=== PATIENT | female | born 1965 | race Asian ===

== ENCOUNTER 2024-05-13 11:22 | Outpatient (CLI) | payer BC ==
[2024-05-13 12:39] LABS: Hematocrit 40.1 % (34.9-44.5); Hemoglobin 13.5 g/dL (12.0-15.5); Mean Corpuscular HGB CONC 33.7 g/dL (32.0-36.0); Mean Corpuscular Hemoglobin 32.1 pg (27.0-33.0); Mean Corpuscular Volume 95.5 fL (81.6-98.3); Mean Platelet Volume 8.8 fL (7.4-10.4); Platelet Count 270 10x3/uL (150-450); RBC Distribution Width 12.1 % (11.5-14.5); White Blood Cell (WBC) Count 10.6 10x3/uL (3.5-10.5)
[2024-05-13 12:52] LABS: Anion Gap 14 mmol/L (10-20); BUN (Urea Nitrogen) 12 mg/dL (9.8-20.1); Calc. Creatinine Clearance 0 mL/min (70-130); Calcium 9.6 mg/dL (7.8-10.44); Carbon Dioxide 26 mmol/L (22-29); Chloride 101 mmol/L (98-107); Estimated GFR 75; Glucose 150 mg/dL (70-105); Potassium 3.9 mmol/L (3.5-5.1); Sodium 137 mmol/L (136-145)
== END 2024-05-13 11:23 | disposition home or self-care (01) ==
LOC: CSHLAB 11:22
PROVIDERS: ATTEND Surgery
DX: Z01.818 Encounter for other preprocedural examination (principal); C50.011 Malignant neoplasm of nipple and areola, right female breast
CPT/HCPCS: 80048; 85027; 93005; 93010

== ENCOUNTER 2024-05-18 06:03 | Day surgery (SDC) | payer BC ==
[2024-05-13 11:59] VITALS: BMI 22.8
[2024-05-18] MEDS ORDERED: Bupivacaine HCl 0.5%/Epinephrine 1:200,000/PF 30 ml Vial ONE (06:48)
[2024-05-18] MEDS ORDERED: PROPOFOL 20 ML ONE (07:02)
[2024-05-18] MEDS ORDERED: Lidocaine 2% PF 5 ML VIAL ONE (07:02)
[2024-05-18] MEDS ORDERED: CEFAZOLIN 2 GM VIAL ONE (07:25)
[2024-05-18] MEDS ORDERED: fentaNYL 50 mcg/mL 1 mL Vial ONE (07:41)
[2024-05-18] MEDS ORDERED: Ondansetron PF 4 MG/2 ML Vial ONE (07:51)
[2024-05-18] MEDS ORDERED: Dexamethasone 20 MG/5 ML VIAL ONE (07:51)
== END 2024-05-18 09:25 | disposition home or self-care (01) ==
LOC: CSHSDC 06:03
PROVIDERS: ATTEND Surgery
PROC: 05HN33Z Insertion of Infusion Device into Left Internal Jugular Vein, Percutaneous Approach (ICD-10-PCS; principal; 2024-05-18)
DX: C50.911 Malignant neoplasm of unspecified site of right female breast (principal); C50.912 Malignant neoplasm of unspecified site of left female breast; I10 Essential (primary) hypertension; Z78.0 Asymptomatic menopausal state; Z88.6 Allergy status to analgesic agent
CPT/HCPCS: 71045; A6258; C1788; J1100; J1642; J2405; J2704; J3010

== ENCOUNTER 2024-06-14 12:57 | Outpatient (CLI) | payer BC | END 2024-06-14 12:58 | disposition home or self-care (01) | LOC: CSHEKG 12:57 | PROVIDERS: ATTEND Internal Medicine Hematology & Oncology | DX: C50.811 Malignant neoplasm of overlapping sites of right female breast (principal); C50.812 Malignant neoplasm of overlapping sites of left female breast | CPT/HCPCS: 93005; 93010 ==